=== PATIENT | female | born 1955 | race Caucasian/White ===

== ENCOUNTER → 2018-04-15 | Outpatient (CLI) | payer BC ==
--- NOTE | 2018-04-20 11:30 | MM ---
Reason for exam: screening (asymptomatic). Last mammogram was performed 2 years and 2 months ago. History: Patient is postmenopausal and is nulliparous. Family history of breast cancer in sister at age 56, breast cancer in mother at age 73, breast cancer in paternal grandmother, breast cancer in maternal aunt, breast cancer in paternal cousin, and breast cancer in maternal cousin. Physical Findings: A clinical breast exam by your physician is recommended on an annual basis and results should be correlated with mammographic findings. MG Screening Mammo w CAD Bilateral CC and MLO view(s) were taken. Prior study comparison: February 04, 2016, bilateral MG screening mammo w CAD. February 07, 2015, right breast MG work up mamm w CAD RT. The breast tissue is heterogeneously dense. This may lower the sensitivity of mammography. No significant changes when compared with prior studies. ASSESSMENT: Negative, BI-RAD 1 RECOMMENDATION: Routine screening mammogram of both breasts in 1 year.
== END | disposition home or self-care (01) ==
LOC: RADMAMWWP 14:16
PROVIDERS: ATTEND Internal Medicine
DX: Z12.31 Encounter for screening mammogram for malignant neoplasm of breast (principal)
CPT/HCPCS: 77067

== ENCOUNTER → 2019-02-01 | Outpatient (CLI) | payer BC ==
--- NOTE | 2019-02-01 10:55 | XR ---
Left hand and wrist HISTORY: Trauma and pain 3 views of the left hand and 3 views of the left wrist are submitted. Bone mineralization is reduced. Mild arthropathy noted at the intercarpal row, distal interphalangeal joints, metacarpophalangeal joint of the first digit. Alignment is maintained. IMPRESSION: No fracture or dislocation. Osteoarthritis.
--- NOTE | 2019-02-01 10:56 | XR ---
Bilateral ankles HISTORY: Trauma and pain 3 views of each ankle are submitted on a total of 6 images There is a small ossific density present distal to the lateral malleolus of the right ankle. Mild sof t tissue swelling is present. No dislocation. Left ankle unremarkable. IMPRESSION: There may be a small chip fracture or avulsion injury lateral right ankle.
== END | disposition home or self-care (01) ==
LOC: RADXRYALE 08:47
PROVIDERS: ATTEND Internal Medicine
DX: M19.042 Primary osteoarthritis, left hand (principal); M25.571 Pain in right ankle and joints of right foot; M25.572 Pain in left ankle and joints of left foot

== ENCOUNTER → 2019-10-24 | Outpatient (CLI) | payer BC ==
--- NOTE | 2019-10-25 10:43 | MM ---
Reason for exam: screening (asymptomatic). Last mammogram was performed 1 year and 6 months ago. History: Patient is postmenopausal and is nulliparous. Family history of breast cancer in sister at age 56, breast cancer in mother at age 73, breast cancer in paternal grandmother, breast cancer in maternal aunt, breast cancer in paternal cousin, and breast cancer in maternal cousin. Physical Findings: A clinical breast exam by your physician is recommended on an annual basis and results should be correlated with mammographic findings. MG Screening Mammo w CAD Bilateral CC and MLO view(s) were taken. Prior study comparison: April 15, 2018, bilateral MG screening mammo w CAD. February 04, 2016, bilateral MG screening mammo w CAD. The breast tissue is heterogeneously dense. This may lower the sensitivity of mammography. Finding: There are typically benign round, grouped/clustered calcifications in the lower quadrant, middle position unchanged from 2016. Focal asymmetry right anterior slight outer CC view 2-3cm from the nipple. ASSESSMENT: Incomplete: need additional imaging evaluation, BI-RAD 0 RECOMMENDATION: Special view mammogram of the right breast. If lesion persists on supplemental views, image directed ultrasound is recommended. [facility] will attempt to contact patient to return for supplemental views and ultrasound if indicated.
== END | disposition home or self-care (01) ==
LOC: RADMAMWWP 13:01
PROVIDERS: ATTEND Internal Medicine
DX: Z12.31 Encounter for screening mammogram for malignant neoplasm of breast (principal)
CPT/HCPCS: 77067

== ENCOUNTER → 2019-10-28 | Outpatient (CLI) | payer BC ==
--- NOTE | 2019-10-31 08:13 | MM ---
Reason for exam: additional evaluation requested from abnormal screening. Last mammogram was performed less than 1 month ago. History: Patient is postmenopausal and is nulliparous. Family history of breast cancer in sister at age 56, breast cancer in mother at age 73, breast cancer in paternal grandmother, breast cancer in maternal aunt, breast cancer in paternal cousin, and breast cancer in maternal cousin. Took hormonal contraceptives beginning at age 40. Physical Findings: Nurse did not find any significant physical abnormalities on exam. MG 3D Work Up W/Cad RT Spot compression CC and LM view(s) were taken of the right breast. Prior study comparison: October 24, 2019, bilateral MG screening mammo w CAD. April 15, 2018, bilateral MG screening mammo w CAD. The breast tissue is heterogeneously dense. This may lower the sensitivity of mammography. The previously seen abnormality resolves on additional views and appears as fibroglandular tissue compatible with summation. These results were verbally communicated with the patient and result sheet given to the patient on 10/28/19. ASSESSMENT: Negative, BI-RAD 1 RECOMMENDATION: Return to routine screening mammogram schedule for both breasts.
== END | disposition home or self-care (01) ==
LOC: RADMAMWWP 14:32
PROVIDERS: ATTEND Internal Medicine
DX: R92.8 Other abnormal and inconclusive findings on diagnostic imaging of breast (principal)
CPT/HCPCS: 77061; 77065

== ENCOUNTER → 2021-04-24 | Outpatient (CLI) | payer BC ==
--- NOTE | 2021-04-25 12:32 | MM ---
Reason for exam: screening (asymptomatic). Last mammogram was performed 1 year and 6 months ago. History: Patient is postmenopausal and is nulliparous. Family history of breast cancer in sister at age 56, breast cancer in mother at age 73, breast cancer in paternal grandmother, breast cancer in maternal aunt, breast cancer in paternal cousin, and breast cancer in maternal cousin. Took hormonal contraceptives beginning at age 40. Physical Findings: A clinical breast exam by your physician is recommended on an annual basis and results should be correlated with mammographic findings. MG 3D Screening Mammo W/Cad Bilateral CC and MLO view(s) were taken. Prior study comparison: October 24, 2019, bilateral MG screening mammo w CAD. April 15, 2018, bilateral MG screening mammo w CAD. The breast tissue is heterogeneously dense. This may lower the sensitivity of mammography. There are benign appearing round calcifications bilaterally. There is no discrete abnormality. ASSESSMENT: Negative, BI-RAD 1 RECOMMENDATION: Routine screening mammogram of both breasts in 1 year.
== END | disposition home or self-care (01) ==
LOC: RADMAMWWP 07:32
PROVIDERS: ATTEND Internal Medicine
DX: Z12.31 Encounter for screening mammogram for malignant neoplasm of breast (principal); Z78.0 Asymptomatic menopausal state; Z80.3 Family history of malignant neoplasm of breast
CPT/HCPCS: 77063; 77067

== ENCOUNTER → 2022-04-29 | Outpatient (CLI) | payer BC ==
[2022-04-29 09:55] VITALS: BP 144/82; PULSE 68; RESP 17; TEMP 98.1
--- NOTE | 2022-04-29 11:10 | P.HPOB ---
History of Present Illness H&P Date: 04/29/22 Chief Complaint: The patient is here for her routine gynecologic exam and ma mmogram. This is a 66-year-old G0 with an LMP of 2008. The patient is here to establish with this office. It has been about 4 years since her last pelvic exam. She is without gynecologic complaints and denies any postmenopausal bleeding. Review of Systems The patient's weight has been stable over the last year. She denies respiratory, cardiac, or G.I. problems. Past Medical History Past Medical History: Asthma, Hypertension, Osteoarthritis (OA), Thyroid Disorder Additional Past Medical History / Comment(s): Hypothyroidism, seasonal ALLERGIES. 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 Per the patient: tested negative for BRCA. History of Any Multi-Drug Resistant Organisms: None Reported Past Surgical History: Orthopedic Surgery Additional Past Surgical History / Comment(s): carpal tunnel release, cataract EYE SURGERY, R WRIST PLATE PUT IN DUE TO BROKEN ARM. Colonoscopy 2011. Past Anesthesia/Blood Transfusion Reactions: No Reported Reaction Past Psychological History: No Psychological Hx Reported (She denies feeling depressed.) Smoking Status: Never smoker Past Alcohol Use History: None Reported Past Drug Use History: None Reported Additional History: She has been since 2000 and is not sexually active. 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 - Past Family History Mother Family Medical History: Cancer, Hypertension, Thyroid Disorder Additional Family Medical History / Comment(s): Breast cancer, hypothyroidism. Maternal cousin also had breast cancer. Maternal grandmother had diabetes. Father Family Medical History: Cancer, Hypertension Additional Family Medical History / Comment(s): Colon cancer. A paternal grandmother had breast cancer. Brother(s) Family Medical History: Diabetes Mellitus Sister(s) Family Medical History: Cancer Additional Family Medical History / Comment(s): Breast cancer. Medications and Allergies Home Medications Medication Instructions Recorded Confirmed Type Albuterol Inhaler [Ventolin Hfa 1 - 2 puff INHALATION Q6HR PRN 12/01/15 04/29/22 History Inhaler] Levothyroxine Sodium [Synthroid] 100 mcg PO DAILY 12/01/15 04/29/22 History Propranolol LA [Inderal LA] 80 mg PO DAILY 12/01/15 04/29/22 History hydroCHLOROthiazide [Hydrodiuril] 25 mg PO DAILY 12/01/15 04/29/22 History Cetirizine HCl [Zyrtec] 10 mg PO DAILY 04/29/22 04/29/22 History Glucos Sul 2Kcl/MSM/Chond/C/Mn 1 cap PO DAILY 04/29/22 04/29/22 History [Glucosamine Chondroitin Cap] Multivit-Min/FA/Lycopen/Lutein 1 cap PO DAILY 04/29/22 04/29/22 History [Centrum Silver Tablet] Potassium Chloride ER [K-Dur 10] 10 meq PO DAILY 04/29/22 04/29/22 History diphenhydrAMINE [Benadryl] 25 mg PO DAILY 04/29/22 04/29/22 History Allergies Allergy/AdvReac Type Severity Reaction Status Date / Time No Known Allergies Allergy Verified 04/29/22 09:46 Exam Vital Signs Temp Pulse Resp BP Pulse Ox 04/29/22 09:52 98.1 F 68 17 144/82 100 Intake and Output 04/28/22 04/29/22 04/29/22 22:59 06:59 14:59 Other: Weight 65.771 kg Height 5 feet 2 inches, weight 145 pounds, BMI 26.5. This is a well-developed well-nourished white female who is alert and oriented times 3 in no acute distress. HEENT: Within normal limits. NECK: Supple without mass or thyromegaly. CHEST AND LUNGS: Clear to auscultation. HEART: Regular rate and rhythm. BREASTS: Are without mass or discharge. AXILLARY EXAM: Negative for adenopathy. BACK: Negative for CVA tenderness. ABDOMEN: Soft, nontender, without palpable masses. PELVIC EXAM: Normal external genitalia with mild atrophy. Cervix and vagina appear normal with mild atrophy. There is no unusual discharge. There is no evidence of prolapse. The uterus is midposition, nongravid size and nontender. There are no palpable adnexal masses or tenderness. RECTAL EXAM: Rectovaginal exam is negative for mass or tenderness and is negative for occult blood. EXTREMITIES: Nontender. IMPRESSION: 1. 66-year-old menopausal female with normal gynecologic exam. 2. Strong family history of breast cancer. The patient states she tested negative for the BRCA mutation. PLAN: 1. Pap smear cotest was performed. If this is negative, we will repeat this in 4-5 years. If they are both negative, we will consider discontinuing Pap smear screening. 2. Self breast awareness was discussed with the patient. We have also discussed symptoms associated with inflammatory breast cancer. 3. Screening mammogram will be done today. 4. Osteoporosis prevention was discussed. I have stressed the importance of adequate calcium, vitamin D and regular exercise. Recommended amounts of calcium and vitamin D were also discussed. She had a bone density test done about 10 years ago. She states she has an order from her PCP for another bone density test and will be doing this in the near future. 5. Colorectal cancer screening was discussed. She had a Cologuard done through her PCP during the last 2 years. Because of her father's history of colon cancer, I have recommended colonoscopy screening. She will discuss this with her PCP. 6. She has completed her Covid vaccination series but has not received a booster. She will consider the booster. 7. The patient was advised to return in 1-2 years for her well woman examination.
== END ==
LOC: WWCWWP 09:38
PROVIDERS: ATTEND Obstetrics & Gynecology
DX: Z12.31 Encounter for screening mammogram for malignant neoplasm of breast (principal); Z01.419 Encounter for gynecological examination (general) (routine) without abnormal findings; Z78.0 Asymptomatic menopausal state; J45.909 Unspecified asthma, uncomplicated; Z85.3 Personal history of malignant neoplasm of breast; I10 Essential (primary) hypertension; M19.90 Unspecified osteoarthritis, unspecified site; E03.9 Hypothyroidism, unspecified; Z79.51 Long term (current) use of inhaled steroids; Z79.890 Hormone replacement therapy
CPT/HCPCS: 77063; 77067

== ENCOUNTER → 2022-05-08 | Outpatient (CLI) | payer BC ==
--- NOTE | 2022-05-08 08:00 | MM ---
Reason for Exam: Additional evaluation requested from abnormal screening. Last screening mammogram was performed less than 1 month ago. Patient History: Menarche at age 11. Patient has no children. Postmenopausal. Hormonal Contraceptives, from age 40 until age 41. Paternal grandmother had breast cancer. Paternal cousin had breast cancer. Maternal cousin had breast cancer. Maternal aunt had breast cancer. Sister had breast cancer, age 56. Mother had breast cancer, age 73. Risk Values: May 5 year model risk: 6.3%. NCI Lifetime model risk: 21.1%. Prior Study Comparison: 04/15/2018 Bilateral Screening Mammogram, [facility]. 10/24/2019 Bilateral Screening Mammogram, [facility]. 10/28/2019 Right Diagnostic Mammogram, [facility]. 04/24/2021 Bilateral Screening Mammogram, [facility]. 04/29/2022 Bilateral MG 3D screening mammo w/cad, [facility]. Tissue Density: Right: The breast tissue is heterogeneously dense. This may lower the sensitivity of mammography. Findings: Analyzed By CAD. Spot MLO and lateral view shows persistence of patchy dense tissue. On the spot CC view, the lateral anterior asymmetric density becomes less defined. Precautionary 6 month follow-up is recommended. Overall Assessment: Probably benign, BI-RAD 3 Management: Diagnostic Mammogram of the right breast in 6 months. 1. Patient should continue monthly self breast exams. 2. A clinical breast exam by your physician is recommended on an annual basis. 3. This exam should not preclude additional follow-up of suspicious palpable abnormalities. Electronically signed and approved by: Jayjay Villanueva M.D. Radiologist
== END | disposition home or self-care (01) ==
LOC: RADMAMWWP 06:48
PROVIDERS: ATTEND Obstetrics & Gynecology
DX: R92.8 Other abnormal and inconclusive findings on diagnostic imaging of breast (principal)
CPT/HCPCS: 77061; 77065

== ENCOUNTER → 2022-11-05 | Outpatient (CLI) | payer BC ==
--- NOTE | 2022-11-05 08:09 | MM ---
Reason for Exam: Follow-up at short interval from prior study. Last screening mammogram was performed 6 month(s) ago. Patient History: Menarche at age 11. Patient has no children. Postmenopausal. Hormonal Contraceptives, from age 40 until age 41. Paternal grandmother had breast cancer. Paternal cousin had breast cancer. Maternal cousin had breast cancer. Maternal aunt had breast cancer. Sister had breast cancer, age 56. Mother had breast cancer, age 73. Risk Values: May 5 year model risk: 6.4%. NCI Lifetime model risk: 20.4%. Prior Study Comparison: 04/24/2021 Bilateral Screening Mammogram, [facility]. 04/29/2022 Bilateral MG 3D screening mammo w/cad, [facility]. 05/08/2022 Right MG 3D work up w/cad RT, [facility]. Tissue Density: Right: The breast tissue is heterogeneously dense. This may lower the sensitivity of mammography. Findings: Analyzed By CAD. No evidence for nodular distortion. No suspicious calcifications. Overall Assessment: Benign, BI-RAD 2 Management: Screening Mammogram of both breasts in 6 months. A clinical breast exam by your physician is recommended on an annual basis and results should be correlated with mammographic findings. This exam should not preclude additional follow-up of suspicious palpable abnormalities. Results were given to the patient verbally at the time of exam. Electronically signed and approved by: José Miguel Campbell M.D. Radiologis
== END | disposition home or self-care (01) ==
LOC: RADMAMWWP 07:17
PROVIDERS: ATTEND Obstetrics & Gynecology
DX: R92.8 Other abnormal and inconclusive findings on diagnostic imaging of breast (principal); Z78.0 Asymptomatic menopausal state; Z80.3 Family history of malignant neoplasm of breast
CPT/HCPCS: 77061; 77065

== ENCOUNTER → 2022-11-05 | Outpatient (CLI) | payer BC ==
--- NOTE | 2022-11-05 09:52 | BD ---
EXAMINATION TYPE: Axial Bone Density DATE OF EXAM: 11/05/2022 CLINICAL HISTORY: 67 years old Female. ICD-10 CODE: R92.8 ABNORMAL MAMMO N95.8 Height: 62.5" Weight: 150.5 FRAX RISK QUESTIONS: Alcohol (3 or more units per day): No Family History (Parent hip fracture): No Glucocorticoids (More than 3mos): No (Ex: prednisone, prednisolone, methylprednisolone, dexamethasone, and hydrocortisone). History of Fracture in Adulthood: Yes, bilateral ankles, right wrist (plate in wrist) Secondary Osteoporosis: 1. Type 1 Diabetes: No 2. Hyperthyroidism: No 3. Menopause before 45: No 4. Malnutrition: No 5. Chronic liver disease: No Rheumatoid Arthritis: No Current Tobacco Use: No RISK FACTORS HISTORY OF: Hip Fracture (Right/Left): No Spine Fracture: No History of Wrist Fracture: Yes When: Right wrist fx one year ago Surgery to Spine/Hip(right/left)/Wrist (right/left): Yes When: Right wrist one year ago Family History of Osteoporosis: Unsure Active: Yes Diet low in dairy products/other sources of calcium: Maybe Postmenopausal woman: Yes Lost more than 2 inches in height since high school: No Frequent falls: No Poor Health: No Hyperparathyroidism: No Adrenal Insufficiency: No MEDICATIONS: Prednisone or other steroids: No Thyroid Medications: Yes Which medication: Synthroid How Long: Approx 30 years Osteoporosis Medications: No Additional Medications: Synthroid, Blood pressure, water pill, potassium Additional History: No EXAM MEASUREMENTS: Bone mineral densitometry was performed using the [employer] System. Bone mineral density as measured about the Lumbar spine is: ----- L1-L4(G/cm2): 1.185 T Score Values are as follows: ----- L1: -1.8 ----- L2: -1.4 ----- L3: -0.5 ----- L4: 2.6 ----- L1-L4: 0.0 Z Score Values are as follows: ----- L1: -0.2 ----- L2: 0.1 ----- L3: 1.0 ----- L4: 4.2 ----- L1-L4: 1.5 Baseline at [facility] Bone mineral density about the R hip (g/cm2): 0.843 Bone mineral density about the L hip (g/cm2): 0.830 T Score values are as follows: -----R Neck: -1.1 -----L Neck: -0.6 -----R Total: -1.3 -----L Total: -1.4 Z Score values are as follows: -----R Neck: 0.4 -----L Neck: 0.8 -----R Total: -0.1 -----L Total: -0.2 Baseline at [facility] FRAX%s: The graph provided illustrates a 14.0% chance for a major osteoporotic fx and a 1.2% chance f or the hips probability for fx in 10 years time. IMPRESSION: Osteopenia (T Score between -2.5 and -1). There is slightly increased risk of fracture and the patient may be considered for treatment. Re-Screen 2-5 years. NOTE: T-SCORE=SD OF THE YOUNG ADULT MEAN.
--- NOTE | 2022-11-05 11:50 | P.PN ---
Progress Note - Text Progress Note Date: 11/05/22 OUTPATIENT FOLLOW-UP NOTE TEST(S)/RESULTS: Test results from 11/05/2022 include benign right mammogram and own density test showing osteopenia. METHOD OF NOTIFICATION: The patient was notified by phone. PATIENT COMMENTS: DIAGNOSIS: Benign right mammogram and osteopenia. DISCUSSION: Bilateral screening mammogram will be due in 6 months. I have stressed the importance of adequate calcium, vitamin D, and regular exercise. We will plan on repeating bone density testing in 2-3 years. PLAN: As above.
== END | disposition home or self-care (01) ==
LOC: RADBDWWP 07:15
PROVIDERS: ATTEND Obstetrics & Gynecology
DX: N95.8 Other specified menopausal and perimenopausal disorders (principal); M85.89 Other specified disorders of bone density and structure, multiple sites
CPT/HCPCS: 77080

== ENCOUNTER → 2023-05-05 | Outpatient (CLI) | payer MEDICARE ==
[2023-05-05 07:45] VITALS: BP 158/90; PULSE 66; RESP 16; TEMP 98.5
--- NOTE | 2023-05-05 08:14 | P.HPOB ---
History of Present Illness H&P Date: 05/05/23 Chief Complaint: The patient is here for her routine gynecologic exam and ma mmogram. This is a 67-year-old G0 with an LMP of 2008. The patient is without gynecologic complaints and denies any postmenopausal bleeding. Review of Systems The patient has gained 13 pounds over the last year. She denies respiratory, cardiac, or G.I. problems. Past Medical History Past Medical History: Asthma, Hypertension, Osteoarthritis (OA), Thyroid Disorder Additional Past Medical History / Comment(s): Hypothyroidism, seasonal ALLERGIES. Osteopenia. 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 Per the patient: tested negative for BRCA. History of Any Multi-Drug Resistant Organisms: None Reported Past Surgical History: Orthopedic Surgery Additional Past Surgical History / Comment(s): carpal tunnel release, cataract EYE SURGERY, R WRIST PLATE PUT IN DUE TO BROKEN ARM. Colonoscopy 2011. Past Anesthesia/Blood Transfusion Reactions: No Reported Reaction Past Psychological History: No Psychological Hx Reported Smoking Status: Never smoker Past Alcohol Use History: None Reported Past Drug Use History: None Reported Additional History: She has been since 2000 and is not sexually active. 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 - Past Family History Mother Family Medical History: Cancer, Hypertension, Thyroid Disorder Additional Family Medical History / Comment(s): Breast cancer, hypothyroidism. Maternal cousin also had breast cancer. Maternal grandmother had diabetes. Father Family Medical History: Cancer, Hypertension Additional Family Medical History / Comment(s): Colon cancer. A paternal grandmother had breast cancer. Brother(s) Family Medical History: Diabetes Mellitus Sister(s) Family Medical History: Cancer Additional Family Medical History / Comment(s): Breast cancer. Medications and Allergies Home Medications Medication Instructions Recorded Confirmed Type Albuterol Inhaler [Ventolin Hfa 1 - 2 puff INHALATION Q6HR PRN 12/01/15 05/05/23 History Inhaler] Levothyroxine Sodium [Synthroid] 100 mcg PO DAILY 12/01/15 05/05/23 History Propranolol LA [Inderal LA] 80 mg PO DAILY 12/01/15 05/05/23 History hydroCHLOROthiazide [Hydrodiuril] 25 mg PO DAILY 12/01/15 05/05/23 History Cetirizine HCl [Zyrtec] 10 mg PO DAILY 04/29/22 05/05/23 History Glucos Sul 2Kcl/MSM/Chond/C/Mn 1 cap PO DAILY 04/29/22 05/05/23 History [Glucosamine Chondroitin Cap] Multivit-Min/FA/Lycopen/Lutein 1 cap PO DAILY 04/29/22 05/05/23 History [Centrum Silver Tablet] Potassium Chloride ER [K-Dur 10] 10 meq PO DAILY 04/29/22 05/05/23 History diphenhydrAMINE [Benadryl] 25 mg PO DAILY 04/29/22 05/05/23 History Calcium Carbonate/Vitamin D3 1 tab PO DAILY 05/05/23 05/05/23 History [Calcium 500 mg-Vit D3 5 mcg (200 Unit)] Allergies Allergy/AdvReac Type Severity Reaction Status Date / Time No Known Allergies Allergy Verified 05/05/23 07:36 Exam Vital Signs Temp Pulse Resp BP Pulse Ox 05/05/23 07:37 98.5 F 66 16 158/90 97 Intake and Output 05/04/23 05/05/23 05/05/23 22:59 06:59 14:59 Other: Weight 71.668 kg Height 5 feet 3 inches, weight 158 pounds, BMI 28.0. This is a well-developed well-nourished white female who is alert and oriented times 3 in no acute distress. HEENT: Within normal limits. NECK: Supple without mass or thyromegaly. CHEST AND LUNGS: Clear to auscultation. HEART: Regular rate and rhythm. BREASTS: Are without mass or discharge. AXILLARY EXAM: Negative for adenopathy. BACK: Negative for CVA tenderness. ABDOMEN: Soft, nontender, without palpable masses. PELVIC EXAM: Normal external genitalia with mild atrophy. Cervix and vagina appear normal with mild atrophy. There is no unusual discharge. There is no evidence of prolapse. The uterus is midposition, nongravid size and nontender. There are no palpable adnexal masses or tenderness. RECTAL EXAM: Rectovaginal exam is negative for mass or tenderness and is negative for occult blood. EXTREMITIES: Nontender. IMPRESSION: 1. 67-year-old menopausal female with normal gynecologic exam. 2. History of osteopenia. 3. Strong family history of breast cancer. The patient has tested negative for the BRCA mutation. PLAN: 1. Pap smear was deferred since she had a negative Pap smear cotest on 04/29/2022. We will plan on repeating this about 4-5 years after her last Pap smear cotest and if that one is negative we will plan on discontinuing Pap smears. 2. Self breast awareness was discussed with the patient. We have also discussed symptoms associated with inflammatory breast cancer. 3. Screening mammogram will be done today. 4. Osteoporosis prevention was discussed. I have stressed the importance of adequate calcium, vitamin D and regular exercise. Recommended amounts of calcium and vitamin D were also discussed. We will plan on repeating the bone density test in about 2 years. Her last one was done on 11/05/2022. 5. Colorectal cancer screening was discussed. She had a Cologuard within the past 2 years. She will discuss colorectal cancer screening options with her PCP. 6. She was advised to return in one year for her annual well woman exam.
--- NOTE | 2023-05-06 18:20 | MM ---
Reason for Exam: Screening (asymptomatic). Last screening mammogram was performed 12 month(s) ago. Patient History: Menarche at age 11. Patient has no children. Postmenopausal. Hormonal Contraceptives, from age 40 until age 41. Paternal grandmother had breast cancer. Paternal cousin had breast cancer. Maternal cousin had breast cancer. Maternal aunt had breast cancer. Sister had breast cancer, age 56. Mother had breast cancer, age 73. Risk Values: May 5 year model risk: 6.4%. NCI Lifetime model risk: 20.4%. Prior Study Comparison: 04/29/2022 Bilateral MG 3D screening mammo w/cad, [facility]. 05/08/2022 Right MG 3D work up w/cad RT, [facility]. 11/05/2022 Right MG 3D diag mammo w/cad RT, [facility]. Tissue Density: The breast tissue is heterogeneously dense. This may lower the sensitivity of mammography. Findings: Analyzed By CAD. Pattern appears symmetrical. There is a focal triangular density in the left mediolateral oblique view which appears to be a change. This could be a summation density. Additional workup is recommended compression view. This is 8 cm from the nipple. Right breast: No suspicious groups of microcalcifications, spiculated or lobular masses, architectural distortion or other secondary signs of malignancy are mammographically apparent. Overall Assessment: Incomplete: need additional imaging evaluation, BI-RAD 0 Management: Diagnostic Mammogram of the left breast. A negative mammogram report should not preclude additional follow up of suspicious palpable abnormalities. Patient should continue monthly self breast exam. A clinical breast exam by your physician is recommended on an annual basis and results should be correlated with mammographic findings. Electronically signed and approved by: Bryant Morocho D.O. Radiologis
== END ==
LOC: WWCWWP 07:30
PROVIDERS: ATTEND Obstetrics & Gynecology
DX: Z01.419 Encounter for gynecological examination (general) (routine) without abnormal findings (principal); E03.9 Hypothyroidism, unspecified; I10 Essential (primary) hypertension; J45.909 Unspecified asthma, uncomplicated; M19.90 Unspecified osteoarthritis, unspecified site; M85.80 Other specified disorders of bone density and structure, unspecified site; Z80.3 Family history of malignant neoplasm of breast; Z79.890 Hormone replacement therapy; Z12.31 Encounter for screening mammogram for malignant neoplasm of breast; Z78.0 Asymptomatic menopausal state; Z79.51 Long term (current) use of inhaled steroids; Z79.899 Other long term (current) drug therapy
CPT/HCPCS: 77063; 77067

== ENCOUNTER → 2023-11-16 | Outpatient (CLI) | payer MEDICARE ==
--- NOTE | 2023-11-16 07:38 | MM ---
Reason for Exam: Follow-up at short interval from prior study. Last screening mammogram was performed 7 month(s) ago. Patient History: Menarche at age 11. Patient has no children. Postmenopausal. Hormonal Contraceptives, from age 40 until age 41. Paternal grandmother had breast cancer. Paternal cousin had breast cancer. Maternal cousin had breast cancer. Maternal aunt had breast cancer. Sister had breast cancer, age 56. Mother had breast cancer, age 73. Risk Values: May 5 year model risk: 6.4%. NCI Lifetime model risk: 19.6%. Prior Study Comparison: 04/15/2018 Bilateral Screening Mammogram, [facility]. 10/24/2019 Bilateral Screening Mammogram, [facility]. 10/28/2019 Right Diagnostic Mammogram, [facility]. 04/24/2021 Bilateral Screening Mammogram, [facility]. 04/29/2022 Bilateral MG 3D screening mammo w/cad, [facility]. 05/08/2022 Right MG 3D work up w/cad RT, [facility]. 11/05/2022 Right MG 3D diag mammo w/cad RT, [facility]. 05/05/2023 Bilateral MG 3D screening mammo w/cad, [facility]. 05/15/2023 Left MG 3D work up w/cad LT, [facility]. Tissue Density: Left: The breasts are heterogeneously dense, which may obscure small masses. Findings: Analyzed By CAD. The pattern is stable. No change in distortion is evident. No spiculated or lobular mass evident. No suspicious groups of microcalcifications, spiculated or lobular masses, architectural distortion or other secondary signs of malignancy are mammographically apparent. Overall Assessment: Benign, BI-RAD 2 Management: Screening Mammogram of both breasts in 6 months. A negative mammogram report should not preclude additional follow up of suspicious palpable abnormalities. Patient should continue monthly self breast exam. A clinical breast exam by your physician is recommended on an annual basis and results should be correlated with mammographic findings. Electronically signed and approved by: Bryant Morocho D.O. Radiologis
== END | disposition home or self-care (01) ==
LOC: RADMAMWWP 06:56
PROVIDERS: ATTEND Obstetrics & Gynecology
DX: R92.332 Mammographic heterogeneous density, left breast (principal); Z78.0 Asymptomatic menopausal state; Z80.3 Family history of malignant neoplasm of breast
CPT/HCPCS: 77065; G0279; 77061

== ENCOUNTER → 2024-05-10 | Outpatient (CLI) | payer MEDICARE ==
[2024-05-10 08:06] VITALS: BP 133/87; PULSE 74; RESP 17; TEMP 98.2
--- NOTE | 2024-05-10 08:18 | P.HPOB ---
History of Present Illness H&P Date: 05/10/24 Chief Complaint: The patient is here for her routine gynecologic exam and ma mmogram. This is a 68-year-old G0 with an LMP of 2009. Patient is without gynecologic complaints and denies any postmenopausal bleeding. Review of Systems The patient has lost 3 pounds over the last year. She denies respiratory, cardiac, or G.I. problems. Past Medical History Past Medical History: Asthma, Hypertension, Osteoarthritis (OA), Thyroid Disorder Additional Past Medical History / Comment(s): Hypothyroidism, seasonal ALLERGIES. Osteopenia. PAST POST ACUTE CARE NURSE HISTORY: She has no history of STDs. Per the patient: tested negative for BRCA. History of Any Multi-Drug Resistant Organisms: None Reported Past Surgical History: Orthopedic Surgery Additional Past Surgical History / Comment(s): carpal tunnel release, cataract EYE SURGERY, R WRIST PLATE PUT IN DUE TO BROKEN ARM. Colonoscopy 2011. Past Anesthesia/Blood Transfusion Reactions: No Reported Reaction Past Psychological History: No Psychological Hx Reported Smoking Status: Never smoker Past Alcohol Use History: None Reported Past Drug Use History: None Reported Additional History: She has been since 2000 and is not sexually active. She retired in 2023. - Past Family History Mother Family Medical History: Cancer, Hypertension, Thyroid Disorder Additional Family Medical History / Comment(s): Breast cancer, hypothyroidism. Maternal cousin also had breast cancer. Maternal grandmother had diabetes. Father Family Medical History: Cancer, Hypertension Additional Family Medical History / Comment(s): Colon cancer. A paternal grandmother had breast cancer. Brother(s) Family Medical History: Diabetes Mellitus Sister(s) Family Medical History: Cancer Additional Family Medical History / Comment(s): Breast cancer. Medications and Allergies Home Medications Medication Instructions Recorded Confirmed Type Albuterol Inhaler [Ventolin Hfa 1 - 2 puff INHALATION Q6HR PRN 12/01/15 05/10/24 History Inhaler] Levothyroxine Sodium [Synthroid] 100 mcg PO DAILY 12/01/15 05/10/24 History Propranolol LA [Inderal LA] 80 mg PO DAILY 12/01/15 05/10/24 History hydroCHLOROthiazide [Hydrodiuril] 25 mg PO DAILY 12/01/15 05/10/24 History Cetirizine HCl [Zyrtec] 10 mg PO DAILY 04/29/22 05/10/24 History Multivit-Min/FA/Lycopen/Lutein 1 cap PO DAILY 04/29/22 05/10/24 History [Centrum Silver Tablet] Potassium Chloride ER [K-Dur 10] 10 meq PO DAILY 04/29/22 05/10/24 History diphenhydrAMINE [Benadryl] 25 mg PO DAILY 04/29/22 05/10/24 History Calcium Carbonate/Vitamin D3 1 tab PO DAILY 05/05/23 05/10/24 History [Calcium 500 mg-Vit D3 5 mcg (200 Unit)] Celecoxib [CeleBREX] 200 mg PO DAILY 05/10/24 05/10/24 History Rosuvastatin Calcium [Crestor] 5 mg PO DAILY 05/10/24 05/10/24 History Allergies Allergy/AdvReac Type Severity Reaction Status Date / Time No Known Allergies Allergy Verified 05/10/24 08:02 Exam Vital Signs Temp Pulse Resp BP Pulse Ox 05/10/24 08:03 98.2 F 74 17 133/87 97 Intake and Output 05/09/24 05/10/24 05/10/24 22:59 06:59 14:59 Other: Weight 70.307 kg Height 5 feet 2 inches, weight 155 pounds, BMI 28.3. This is a well-developed well-nourished white female who is alert and oriented times 3 in no acute distress. HEENT: Within normal limits. NECK: Supple without mass or thyromegaly. CHEST AND LUNGS: Clear to auscultation. HEART: Regular rate and rhythm. BREASTS: Are without mass or discharge. AXILLARY EXAM: Negative for adenopathy. BACK: Negative for CVA tenderness. ABDOMEN: Soft, nontender, without palpable masses. PELVIC EXAM: Normal external genitalia with mild atrophy. Cervix and vagina appear normal with mild atrophy. There is no unusual discharge. There is no evidence of prolapse. The uterus is midposition, nongravid size and nontender. There are no palpable adnexal masses or tenderness. RECTAL EXAM: Rectovaginal exam is negative for mass or tenderness and is negative for occult blood. EXTREMITIES: Nontender. IMPRESSION: 1. 68-year-old menopausal female with normal gynecologic exam. 2. History of osteopenia. PLAN: 1. Pap smear was deferred since she had a negative Pap smear cotest on 04/29/2022. This will be repeated approximately 4 to 5 years after her last Pap smear cotest and if that 1 is negative we will plan on discontinuing Pap smears. 2. Self breast awareness was discussed with the patient. We have also discussed symptoms associated with inflammatory breast cancer. 3. Screening mammogram will be done today. 4. Osteoporosis prevention was discussed. We will plan on repeating the bone density test next year at the time of her well woman examination. 5. Colorectal cancer screening was discussed. She believes she is due for a colonoscopy and will discuss this with Dr. Charles. 6. She was advised to return in one year for her annual well woman exam.
== END ==
LOC: WWCWWP 07:47
PROVIDERS: ATTEND Obstetrics & Gynecology
DX: Z12.31 Encounter for screening mammogram for malignant neoplasm of breast (principal); M85.80 Other specified disorders of bone density and structure, unspecified site; Z78.0 Asymptomatic menopausal state; Z80.3 Family history of malignant neoplasm of breast

== ENCOUNTER → 2024-05-20 | Outpatient (CLI) | payer MEDICARE ==
--- NOTE | 2024-05-20 09:00 | MM ---
Reason for Exam: Additional evaluation requested from abnormal screening. Last screening mammogram was performed less than 1 month ago. Patient History: Menarche at age 11. Patient has no children. Postmenopausal. Hormonal Contraceptives, from age 40 until age 41. Paternal grandmother had breast cancer, age 90. Paternal cousin had breast cancer, age 50. Maternal cousin had breast cancer, age 50. Maternal aunt had breast cancer. Paternal aunt had breast cancer at or over age 50. Sister had breast cancer, age 56. Mother had breast cancer, age 73. Risk Values: May 5 year model risk: 6.4%. NCI Lifetime model risk: 19.6%. Prior Study Comparison: 02/04/2016 Bilateral Screening Mammogram, [facility]. 04/15/2018 Bilateral Screening Mammogram, [facility]. 10/24/2019 Bilateral Screening Mammogram, [facility]. 10/28/2019 Right Diagnostic Mammogram, [facility]. 04/24/2021 Bilateral Screening Mammogram, [facility]. 04/29/2022 Bilateral MG 3D screening mammo w/cad, [facility]. 05/08/2022 Right MG 3D work up w/cad RT, [facility]. 11/05/2022 Right MG 3D diag mammo w/cad RT, [facility]. 05/05/2023 Bilateral MG 3D screening mammo w/cad, [facility]. 05/15/2023 Left MG 3D work up w/cad LT, [facility]. 11/16/2023 Left MG 3D diag mammo w/cad LT, [facility]. 05/10/2024 Bilateral MG 3D screening mammo w/cad, [facility]. Tissue Density: Left: The breasts are heterogeneously dense, which may obscure small masses. Findings: Analyzed By CAD. Layering calcifications upper inner left breast 7 cm from the nipple compatible with milk of calcium. No suspicious calcifications are present. Overall Assessment: Benign, BI-RAD 2 Management: Screening Mammogram of both breasts in 1 year. . Results were given to the patient verbally at the time of exam. Patient should continue monthly self-breast exams. A clinical breast exam by your physician is recommended on an annual basis. This exam should not preclude additional follow-up of suspicious palpable abnormalities. Note on May scores and lifetime risk: 1. A May score greater than 3% is considered moderate risk. If this is the case, consider specialist referral to assess eligibility for a risk reducing agent. 2. If overall lifetime risk for the development of breast cancer is 20% or higher, the patient may qualify for future screening with alternating mammogram and breast MRI. [facility], , 05/20/2024 8:54 AM. Electronically signed and approved by: José Miguel Campbell M.D. Radiologis
== END | disposition home or self-care (01) ==
LOC: RADMAMWWP 08:13
PROVIDERS: ATTEND Obstetrics & Gynecology
DX: R92.8 Other abnormal and inconclusive findings on diagnostic imaging of breast
CPT/HCPCS: 77061; 77065